=== PATIENT | female | born 1955 | race Caucasian/White ===

== ENCOUNTER 2017-07-19 16:00 | Emergency (ER) | payer MEDICARE ==
--- NOTE | 2017-07-19 16:35 | ER Document Report ---
ED Medical Screen (RME) - General Chief Complaint: Palpitations Stated Complaint: IRREGULAR HEARTBEAT Time Seen by Provider: 07/19/17 16:33 Mode of Arrival: Ambulatory Information source: Patient, Relative TRAVEL OUTSIDE OF THE [place] IN LAST 30 DAYS: No - HPI Patient complains to provider of: CP Onset: This morning - pt was seen earlier at [facility] for CP and L arm pain and sent here fore further evaluation. Given ASA at prior facility - Related Data Allergies/Adverse Reactions: codeine Allergy (Verified 07/19/17 16:16) Past Medical History - Social History Frequency of alcohol use: None Drug Abuse: None Renal/ Medical History: Denies: Hx Peritoneal Dialysis Physical Exam - Vital signs Vitals: Temp Pulse Resp BP Pulse Ox 98.1 F 70 14 138/74 H 99 07/19/17 16:16 07/19/17 16:16 07/19/17 16:16 07/19/17 16:16 07/19/17 16:16 Course - Vital Signs Vital signs: Temp Pulse Resp BP Pulse Ox 98.1 F 70 14 138/74 H 99 07/19/17 16:16 07/19/17 16:16 07/19/17 16:16 07/19/17 16:16 07/19/17 16:16
--- NOTE | 2017-07-19 17:16 | RADIOLOGY REPORT (SQ) ---
EXAM DESCRIPTION: CHEST PA/LAT COMPLETED DATE/TIME: 07/19/2017 5:05 pm REASON FOR STUDY: CP COMPARISON: None. EXAM PARAMETERS: NUMBER OF VIEWS: two views TECHNIQUE: Digital Frontal and Lateral radiographic views of the chest acquired. RADIATION DOSE: NA LIMITATIONS: none FINDINGS: LUNGS AND PLEURA: No opacities, masses or pneumothorax. No pleural effusion. MEDIASTINUM AND HILAR STRUCTURES: No masses or contour abnormalities. HEART AND VASCULAR STRUCTURES: Heart normal size. No evidence for failure. BONES: No acute findings. HARDWARE: None in the chest. OTHER: No other significant finding. IMPRESSION: NO SIGNIFICANT RADIOGRAPHIC FINDING IN THE CHEST. TECHNICAL DOCUMENTATION: JOB ID: [id number] [employer]- All Rights Reserved
[2017-07-19 17:34] LABS: ABSOLUTE EOSINOPHILS # (AUTO) 0.2 10^3/uL (0.0-0.6); ABSOLUTE LYMPHOCYTES (AUTO) 3.1 10^3/uL (0.5-4.7); ABSOLUTE MONOCYTES (AUTO) 0.6 10^3/uL (0.1-1.4); ABSOLUTE NEUT (AUTO) 6.6 10^3/uL (1.7-8.2); ALANINE AMINOTRANSFERASE 31 U/L (9-52); ALBUMIN 4.3 g/dL (3.5-5.0); ALKALINE PHOSPHATASE 125 U/L (38-126); ANION GAP 12 (5-19); ASPARTATE AMINO TRANSFERASE 22 U/L (14-36); BASOPHILS % (AUTO) 0.4 % (0-2); BILIRUBIN,DIRECT 0.3 mg/dL (0.0-0.4); BILIRUBIN,TOTAL 0.7 mg/dL (0.2-1.3); BLOOD UREA NITROGEN 15 mg/dL (7-20); CARBON DIOXIDE 29 mmol/L (22-30); CHLORIDE 103 mmol/L (98-107); CREATINE KINASE 36 U/L (30-135); CREATININE RESULT 0.77 mg/dL (0.52-1.25); EOSINOPHILS % (AUTO) 2.3 % (0-6); GLUCOSE 91 mg/dL (75-110); HEMATOCRIT 41.4 % (36.0-47.0); HEMOGLOBIN 14.4 g/dL (12.0-15.5); HGB HCT DIFFERENCE 1.8; LYMPHOCYTES % (AUTO) 29.1 % (13-45); MEAN CORPUSCULAR HEMOGLOBIN 31.8 pg (27.0-33.4); MEAN CORPUSCULAR HGB CONC 34.7 g/dL (32.0-36.0); MEAN CORPUSCULAR VOLUME 92 fl (80-97); MONOCYTES % (AUTO) 5.3 % (3-13); POTASSIUM 4.8 mmol/L (3.6-5.0); RED BLOOD COUNT 4.52 10^6/uL (3.72-5.28); RED CELL DISTRIBUTION WIDTH 13.1 % (11.5-14.0); SEGMENTED NEUTROPHILS % (AUTO) 62.9 % (42-78); SODIUM 143.6 mmol/L (137-145); WHITE BLOOD COUNT 10.5 10^3/uL (4.0-10.5)
[2017-07-19 17:46] LABS: CREATINE KINASE MB 0.48 ng/mL (<4.55); TROPONIN I < 0.012 ng/mL
[2017-07-19] MEDS ORDERED: HYDROXYZINE PAMOATE 25 MG CAPSULE #4 (ER DISP) PO PRN (19:34)
--- NOTE | 2017-07-19 19:44 | ER Document Report ---
ED Cardiac - General Chief Complaint: Palpitations Stated Complaint: IRREGULAR HEARTBEAT Time Seen by Provider: 07/19/17 16:33 Mode of Arrival: Ambulatory Information source: Patient Notes: Patient is a 62-year-old female who presents to the ER today for panic attack this morning. Patient states that she does have a history of anxiety, is on Prozac daily, has had a lot of stress in her life recently as she is the sole caregiver for a sick person. She admits to chest tightness with left shoulder pain and palpitations. She states she feels better now, she denies that she had any shortness of breath or nausea with this, has never had a heart attack or stroke, does not smoke. She states "I know it was a panic attack," says she's had them before. TRAVEL OUTSIDE OF THE [place] IN LAST 30 DAYS: No - Related Data Allergies/Adverse Reactions: codeine Allergy (Verified 07/19/17 16:16) Past Medical History - General Information source: Patient, Relative - Social History Smoking Status: Never Smoker Frequency of alcohol use: None Drug Abuse: None Family History: Reviewed & Not Pertinent Renal/ Medical History: Denies: Hx Peritoneal Dialysis Review of Systems - Review of Systems Constitutional: No symptoms reported EENT: No symptoms reported Cardiovascular: See HPI Respiratory: No symptoms reported Gastrointestinal: No symptoms reported Genitourinary: No symptoms reported Female Genitourinary: No symptoms reported Musculoskeletal: No symptoms reported Skin: No symptoms reported Hematologic/Lymphatic: No symptoms reported Neurological/Psychological: See HPI Physical Exam - Vital signs Vitals: Temp Pulse Resp BP Pulse Ox 98.1 F 70 14 138/74 H 99 07/19/17 16:16 07/19/17 16:16 07/19/17 16:16 07/19/17 16:16 07/19/17 16:16 - Notes Notes: PHYSICAL EXAMINATION: GENERAL: Well-appearing and in no acute distress. HEAD: Atraumatic, normocephalic. EYES: Pupils equal round and reactive to light, extraocular movements intact, sclera anicteric, conjunctiva are normal. ENT: ear canals without erythema or foreign body, TMs pearly de [place] rosa with good bony landmarks, nares patent, oropharynx clear without exudates. Moist mucous membranes. NECK: Normal range of motion, supple without lymphadenopathy LUNGS: CTAB and equal. No wheezes rales or rhonchi. HEART: Regular rate and rhythm without murmurs ABDOMEN: Soft, no tenderness. No guarding, no rebound BACK: no vertebral tenderness, normal ROM GI/: no CVA tenderness EXTREMITIES: Normal range of motion, no pitting edema. No cyanosis. NEUROLOGICAL: Cranial nerves grossly intact. Normal sensory/motor exams. PSYCH: Normal mood, normal affect. SKIN: Warm, Dry, normal turgor, no rashes or lesions noted Course - Re-evaluation Re-evalutation: 07/19/17 19:44 EKG reveals a normal sinus rhythm with a rate of 62 bpm no evidence of ischemia or abnormality, chest x-ray was without acute pathology, cardiac enzymes are negative today, white blood cell count is normal. Patient feels better and has no symptoms at the time that I evaluated her. I will send her home with a small pack of hydroxyzine to try if she has another panic attack. - Vital Signs Vital signs: Temp Pulse Resp BP Pulse Ox 97.8 F 66 20 134/72 H 95 07/19/17 20:01 07/19/17 20:01 07/19/17 20:01 07/19/17 20:01 07/19/17 20:01 - Laboratory Result Diagrams: 07/19/17 16:50 07/19/17 16:50 Discharge - Discharge Clinical Impression: Anxiety Chest pain Qualifiers: Chest pain type: unspecified Qualified Code(s): R07.9 - Chest pain, unspecified Condition: Stable Disposition: HOME, SELF-CARE Additional Instructions: Return immediately for any new or worsening symptoms. Follow up with primary care provider, call tomorrow to make followup appointment. Prescriptions: Hydroxyzine HCl 1 - 2 tab PO Q8 PRN #15 tablet PRN Reason: Forms: Return to Work
[2017-07-19 20:10] VITALS: BP 134/72
--- NOTE | 2017-07-19 22:51 | EKG REPORT ---
SEVERITY:- BORDERLINE ECG - SINUS RHYTHM BORDERLINE R WAVE PROGRESSION, ANTERIOR LEADS : Confirmed by: Roger Mcqueen 19-Jul-2017 22:50:01
== END 2017-07-19 20:04 | disposition home or self-care (01) ==
LOC: ER 16:00
DX: F41.9 Anxiety disorder, unspecified (principal); R07.9 Chest pain, unspecified; R00.2 Palpitations; Z79.899 Other long term (current) drug therapy
CPT/HCPCS: 93005; 99285; 96374; 36415; 82553; 82550; 85025; 80053; 84484; 71020; 93010; J3490

== ENCOUNTER → 2018-08-20 | Outpatient (CLI) | payer BC, MEDICARE ==
--- NOTE | 2018-08-24 13:28 | WOMENS IMAGING REPORT ---
EXAM DESCRIPTION: 3D SCREENING MAMMO BILAT COMPLETED DATE/TIME: 08/20/2018 1:20 pm REASON FOR STUDY: BILATERAL SCREENING MAMMO 3D/Z12.31 Z12.31 ENCNTR SCREEN MAMMOGRAM FOR MALIGNANT NEOPLASM OF ROCKY COMPARISON: 11/11/2015 and 07/22/2014. TECHNIQUE: Standard craniocaudal and mediolateral oblique views of each breast recorded using digita l acquisition and breast tomosynthesis. LIMITATIONS: None. FINDINGS: Findings present which are benign by mammographic criteria. No suspicious masses, calcifi cations or architectural distortion. Pertinent benign findings: Stable asymmetry in the left breast. Read with the assistance of CAD. .[facility] - R2 Cenova Version 1.3 .[facility] - R2 Cenova Version 1.3 .[facility] - R2 Cenova Version 2.4 .[facility] [place] R2 Cenova Version 2.4 .[facility] - R2 [employer] Version 9.2 Benign mammographic findings may include one or more of the following: Smooth masses, popcorn/rim/co arse calcifications, asymmetries, post-procedure changes, and lesions with long-standing stability. IMPRESSION: BENIGN MAMMOGRAPHIC FINDINGS. BIRADS 2 BREAST DENSITY: c. The breasts are heterogeneously dense, which may obscure small masses. BIRAD: 2 BENIGN FINDING(S) RECOMMENDATION: RECOMMENDATION: ROUTINE SCREENING COMMENT: The patient has been notified of the results by letter per SA requirements. Additional no tification policies are in place for contacting patient with suspicious or incomplete findings. Quality ID #[id number]: The [employer] recommends an annual screening mammogram for women aged 40 years or over. This facility utilizes a reminder system to ensure that all patients receive reminder letters, and/or direct phone calls for appointments. This includes reminders for routine scr eening mammograms, diagnostic mammograms, or other Breast Imaging Interventions when appropriate. Th is patient will be placed in the appropriate reminder system. The [employer] (ACR) has developed recommendations for screening MRI of the breast s in certain patient populations, to be used in conjunction with mammography. Breast MRI surveillanc e may be appropriate for women with more than 20% lifetime risk of developing breast cancer as deter mined by genetic testing, significant family history of the disease, or history of mantle radiation f or Hodgkins Disease. ACR Practice Guidelines 2008. DBT Technology DBT is a type of tomographic mammography. With conventional mammography, overlapping breast tissue ma y make lesions difficult to detect, even with good compression. DBT uses an x-ray tube that rotates a round the breast, taking images at different angles. These images are then combined to create thin sl ices of the breast that the radiologist can view as a 3D reconstruction. The [employer] unit can perform full-field digital mammograms (2D imaging); or DBT (3D imaging); or both, in a combination mode that quickly performs both the mammogram and the tomosynthesis scan while the breast is still compressed. PQRS 6045F: Fluoroscopic imaging is not utilized for breast tomosynthesis. TECHNICAL DOCUMENTATION: FINDING NUMBER: (1) ASSESSMENT: (1) JOB ID: [id number] [employer]- All Rights Reserved Reading location - IP/workstation name: [email or web address]-[email or web address]
== END ==
LOC: WI 12:51
PROVIDERS: ATTEND Physician Assistant
DX: Z12.31 Encounter for screening mammogram for malignant neoplasm of breast (principal)
CPT/HCPCS: 77063; 77067